=== PATIENT | male | born 1945 | race Caucasian/White ===

== ENCOUNTER → 2022-03-10 | Outpatient (CLI) | payer MEDICARE ==
--- NOTE | 2022-03-10 16:20 | Diagnostic Imaging Report ---
EXAMINATION: Right hip unilateral 2 or 3 views (w/pelvis when done) HISTORY: Hip pain COMPARISON: None available. FINDINGS: There is moderate hip osteoarthritis. No fracture or dislocation. Surgical clips project over the groin. IMPRESSION: 1. Mild right hip osteoarthritis. Dictated by: Dictated on workstation # [id number]
== END ==
LOC: RAD 10:30
PROVIDERS: ATTEND Registered Nurse
DX: M16.11 Unilateral primary osteoarthritis, right hip (principal)
CPT/HCPCS: 73502